=== PATIENT | male | born 1985 | race Caucasian/White ===

== ENCOUNTER → 2023-03-17 | Outpatient (CLI) | payer OTHER ==
[2023-03-18 15:08] LABS: TESTOSTERONE FREE (DIRECT) 10.3 pg/mL (8.7-25.1)
== END ==
LOC: M LAB 13:35
PROVIDERS: ATTEND Specialist
DX: E29.1 Testicular hypofunction (principal)

== ENCOUNTER 2023-05-10 18:03 | Emergency (ER) | payer OTHER ==
[~2023-05-10] VITALS: Ht 180.3 cm; Wt 110.5 kg
[2023-05-10] MEDS ORDERED: LEVO75TA4 PO (18:56)
[2023-05-10] MEDS ORDERED: VITA100093 (18:56)
[2023-05-10 22:49] VITALS: BP 141/91; TEMP 98.5; O2SAT 96
== END 2023-05-10 23:15 | disposition home or self-care (01) ==
LOC: M ED 18:03
DX: S93.402A Sprain of unspecified ligament of left ankle, initial encounter (principal); W18.43XA Slipping, tripping and stumbling without falling due to stepping from one level to another, initial encounter; E03.9 Hypothyroidism, unspecified; Z87.891 Personal history of nicotine dependence